=== PATIENT | male | born 1970 ===

== ENCOUNTER 2016-12-09 17:44 | Emergency (ER) | payer BC, MEDICARE, OTHER ==
[2016-12-09 17:58] VITALS: BMI 30.2
[2016-12-09] MEDS ORDERED: Lidocaine 2% Viscous 100 ml PO STA (18:37)
[2016-12-09] MEDS ORDERED: Belladonna-Phenobarbital PO STA (18:37)
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
[2016-12-09 19:06] LABS: BASO # 0.1 K/uL (0.0-0.2); BASO % 0.7 % (0.0-2.0); EOS # 0.1 K/uL (0.0-0.7); EOS % 1.6 % (0.0-4.0); HEMATOCRIT 46.4 % (35.0-51.0); LYMPH # 2.9 K/uL (1.0-4.3); LYMPH % 40.1 % (20.0-40.0); MEAN CELL VOLUME 85.4 fL (80.0-94.0); MEAN CORPUSCULAR HEMOGLOBIN 28.4 pg (27.0-31.0); MEAN CORPUSCULAR HGB CONC 33.3 g/dL (33.0-37.0); MEAN PLATELET VOLUME 9.1 fL (7.2-11.7); MONO # 0.5 K/uL (0.0-0.8); MONO % 6.9 % (0.0-10.0); NRBC % 0.1 % (0.0-2.0); RED CELL DISTRIBUTION WIDTH 14.4 % (11.5-14.5); WHITE BLOOD COUNT 7.2 K/uL (4.8-10.8)
[2016-12-09] MEDS ORDERED: Belladonna-Phenobarbital ONE (19:17)
[2016-12-09] MEDS ORDERED: Aluminum Hydroxide/Magnesium Hydroxide Susp (30 mL) PO STA (19:18)
[2016-12-09] MEDS ORDERED: Aluminum Hydroxide/Magnesium Hydroxide Susp (30 mL) ONE (19:21)
[2016-12-09 19:59] VITALS: O2SAT 99
[2016-12-09 20:54] LABS: CHLORIDE 103 mmol/L (98-107); POTASSIUM 4.1 mmol/L (3.6-5.2); SODIUM 138 mmol/L (132-148)
[2016-12-09 20:56] LABS: CARBON DIOXIDE 22 mmol/L (22-30); GFR AFRICAN-AMERICAN > 60
[2016-12-09 20:57] LABS: ALB/GLOB RATIO 1.4 (1.0-2.1); ALKALINE PHOSPHATASE 72 U/L (38-126); ALT/SGPT 32 U/L (21-72); AST/SGOT 28 U/L (17-59); BILIRUBIN,TOTAL 0.5 mg/dL (0.2-1.3); BLOOD UREA NITROGEN 15 mg/dL (9-20); CALCIUM 8.9 mg/dl (8.6-10.4); GLUCOSE,RANDOM 87 mg/dL (75-110); TOTAL PROTEIN 7.5 g/dL (6.3-8.3)
[2016-12-09 21:07] VITALS: BP 139/83; PULSE 62; RESP 16; TEMP 98.2
--- NOTE | 2016-12-09 23:12 | RAD ---
HISTORY: chest pain COMPARISON: None available. TECHNIQUE: Chest, one view. FINDINGS: Examination limited by habitus. LUNGS: Right infrahilar infiltrate. Please note that chest x-ray has limited sensitivity for the detection of pulmonary masses. PLEURA: No significant pleural effusion identified. No definite pneumothorax . CARDIOVASCULAR: The cardiomediastinal silhouette appears within normal limits of size. OSSEOUS STRUCTURES: No acute osseous abnormality identified. VISUALIZED UPPER ABDOMEN: Unremarkable. OTHER FINDINGS: None. IMPRESSION: Right infrahilar infiltrate. Study has been marked for PA review.
--- NOTE | 2016-12-14 09:02 | CARD ---
APPROVED REPORT EKG Measurement Heart [id number] <Conclusion> Normal sinus rhythm Normal ECG
== END 2016-12-09 21:00 | disposition left against medical advice (07) ==
LOC: C.ER 17:44
DX: R07.9 Chest pain, unspecified (principal)

== ENCOUNTER 2017-01-29 09:01 | Emergency (ER) | payer MEDICARE ==
[2017-01-29 09:01] VITALS: BMI 30.2
[2017-01-29 09:13] VITALS: BP 126/86; PULSE 67; RESP 16; TEMP 98; O2SAT 98
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
--- NOTE | 2017-01-29 10:33 | CT ---
PROCEDURE: CT HEAD WITHOUT CONTRAST. HISTORY: Fall COMPARISON: None available. TECHNIQUE: Axial computed tomography images were obtained through the head/brain without intravenous contrast. Radiation dose: Total exam DLP = 1004.67 mGy-cm. This CT exam was performed using one or more of the following dose reduction techniques: Automated exposure control, adjustment of the mA and/or kV according to patient size, and/or use of iterative reconstruction technique. FINDINGS: HEMORRHAGE: No intracranial hemorrhage. BRAIN: Castorena-white matter differentiation is preserved. There is no mass, mass effect or abnormal extra-axial fluid collection. VENTRICLES: The ventricles are normal in size, shape and configuration. CALVARIUM: There is no calvarial fracture. There is a small right parietal scalp hematoma. PARANASAL SINUSES: There is a small retention cyst/ polyp in the right maxillary sinus. The remaining included paranasal sinuses are clear. MASTOID AIR CELLS: Predominantly clear. OTHER FINDINGS: None. IMPRESSION: No acute intracranial abnormality. Small right parietal scalp hematoma.
--- NOTE | 2017-01-29 10:37 | CT ---
PROCEDURE: CT Cervical Spine without contrast HISTORY: Fall COMPARISON: None available. TECHNIQUE: Axial computed tomography images were obtained of the cervical spine without the use of intravenous contrast. Coronal and sagittal reformatted images were created and reviewed. Radiation dose: Total exam DLP = 696.53 mGy-cm. This CT exam was performed using one or more of the following dose reduction techniques: Automated exposure control, adjustment of the mA and/or kV according to patient size, and/or use of iterative reconstruction technique. FINDINGS: VERTEBRAE: There is normal alignment of the cervical vertebral bodies. There is straightening of the cervical spine with loss of normal cervical lordosis. Bone alignment and mineralization are normal. There is no acute fracture or traumatic anterior listhesis. The craniocervical junction is normal. The atlantoaxial joint is normal. DISCS/SPINAL CANAL/NEURAL FORAMINA: There is mild multilevel degenerative disc disease due to combination of disc osteophyte complexes, uncovertebral joint hypertrophy and multilevel facet arthropathy, worse at C5-6 with mild left neural foraminal stenosis. No central spinal canal stenosis. PARASPINAL SOFT TISSUES: The paraspinous soft tissues are normal. OTHER FINDINGS: No apical pneumothorax. IMPRESSION: No acute fracture or traumatic anterior listhesis. Straightening of the cervical spine may be positional or related to muscle spasm.
== END 2017-01-29 11:27 | disposition home or self-care (01) ==
LOC: C.ER 09:01
DX: S09.90XA Unspecified injury of head, initial encounter (principal); T14.8 Other injury of unspecified body region; W01.0XXA Fall on same level from slipping, tripping and stumbling without subsequent striking against object, initial encounter; Y93.01 Activity, walking, marching and hiking; Y92.480 Sidewalk as the place of occurrence of the external cause

== ENCOUNTER 2017-07-12 08:16 | Emergency (ER) | payer BC, MEDICARE ==
[2017-07-12 08:16] VITALS: BMI 30.2
[2017-07-12 08:24] VITALS: RESP 18
[2017-07-12] MEDS ORDERED: guaiFENesin 100 mg/5 ml Syrup UD ONE (10:05)
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
[2017-07-12] MEDS ORDERED: guaiFENesin 100 mg/5 ml Syrup UD PO STA (10:09)
[2017-07-12 10:12] VITALS: BP 134/83; PULSE 78; TEMP 97.4
[2017-07-12 10:28] VITALS: O2SAT 97
== END 2017-07-12 10:11 | disposition home or self-care (01) ==
LOC: C.ER 08:16
DX: B34.9 Viral infection, unspecified (principal)

== ENCOUNTER 2018-04-18 00:40 | Emergency (ER) | payer MEDICARE, BC ==
[2018-04-18 00:40] VITALS: BMI 34.5
[2018-04-18 00:55] VITALS: TEMP 98.2
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
[2018-04-18 04:20] VITALS: BP 124/79; PULSE 76; RESP 18
[2018-04-18 05:15] VITALS: O2SAT 97
--- NOTE | 2018-04-18 07:09 | CT ---
Date of service: 04/18/2018 PROCEDURE: CT HEAD WITHOUT CONTRAST. HISTORY: headache, dizzy, s/p fall COMPARISON: None available. TECHNIQUE: Axial computed tomography images were obtained through the head/brain without intravenous contrast. Radiation dose: Total exam DLP = 1084 mGy-cm. This CT exam was performed using one or more of the following dose reduction techniques: Automated exposure control, adjustment of the mA and/or kV according to patient size, and/or use of iterative reconstruction technique. FINDINGS: HEMORRHAGE: No intracranial hemorrhage. BRAIN: No mass effect or edema. No atrophy or chronic microvascular ischemic changes. VENTRICLES: Unremarkable. No hydrocephalus. CALVARIUM: Unremarkable. PARANASAL SINUSES: Unremarkable as visualized. No significant inflammatory changes. MASTOID AIR CELLS: Unremarkable as visualized. No inflammatory changes. OTHER FINDINGS: None. IMPRESSION: No acute intracranial abnormality. If symptoms persists, consider correlation with MRI. These findings were preliminarily reported at 3:45 a.m. on 04/18/[address] Hong Muñiz from [facility].
--- NOTE | 2018-04-18 08:27 | RAD ---
Date of service: 04/18/2018 PROCEDURE: Right Ankle Radiographs. HISTORY: ankle pain, fall COMPARISON: None FINDINGS: BONES: There is no calvarial fracture or extracranial soft tissue swelling. JOINTS: There is mild tricompartmental degenerative osteoarthrosis with reduced joint spaces, marginal osteophytes and tibial spiking, worse in the media compartment. There is a small suprapatellar joint effusion SOFT TISSUES: Normal. OTHER FINDINGS: None. IMPRESSION: No acute fracture or dislocation
--- NOTE | 2018-04-18 08:38 | RAD ---
Date of service: 04/18/2018 PROCEDURE: Right Knee Radiographs. HISTORY: Pain, fall COMPARISON: None. FINDINGS: BONES: Bone alignment and mineralization are normal. There is no acute displaced fracture or bone destruction. JOINTS: Normal. No osteoarthritis. JOINT EFFUSION: None. OTHER FINDINGS: None. IMPRESSION: No acute fracture or dislocation.
== END 2018-04-18 04:08 | disposition home or self-care (01) ==
LOC: C.ER 00:40 → SUPCPDRO 00:40 → C.ER 04:08
DX: S09.90XA Unspecified injury of head, initial encounter (principal); S93.401A Sprain of unspecified ligament of right ankle, initial encounter; S83.91XA Sprain of unspecified site of right knee, initial encounter; W01.0XXA Fall on same level from slipping, tripping and stumbling without subsequent striking against object, initial encounter

== ENCOUNTER 2018-06-11 05:54 | Day surgery (SDC) | payer MEDICARE, BC ==
[2018-06-06 11:22] VITALS: BMI 33.9
[2018-06-11] MEDS ORDERED: Lidocaine/Epinephrine 1% 1:100000 10 ML IJ ONE (07:14)
[2018-06-11] MEDS ORDERED: Bupivacaine 0.25% 20 ML INJ IJ ONE (07:14)
[2018-06-11] MEDS ORDERED: ceFAZolin 1 gm FROZEN Premix 2 GM/100 ML ML IVPB ONE (07:15)
[2018-06-11] MEDS ORDERED: Propofol 10 mg/ml Inj (20 ML) ONE ×2 (07:37→10:44)
[2018-06-11] MEDS ORDERED: Midazolam 2 MG/2 ML VIAL ONE ×2 (07:37→10:44)
[2018-06-11] MEDS ORDERED: metroNIDAZOLE IV 500 mg/100 ml 500 MG/100 ML BAG ONE (08:28)
[2018-06-11] MEDS ORDERED: Neostigmine Methylsulfate 3mg/3ml Syringe IV ONE (10:05)
[2018-06-11] MEDS ORDERED: Oxycodone/Acetaminophen 5/325 mg Tab PO PRN (10:28)
--- NOTE | 2018-06-11 10:31 | PCM.SURG1 ---
Surgeon's Initial Post Op Note - Surgeon's Notes Surgeon: Dr Trevino Outpatient Coding Specialist: Carmen Chao PGY2 Type of Anesthesia: General Endo Pre-Operative Diagnosis: internal and external hemorrhoids Operative Findings: internal and external hemorrhoids Post-Operative Diagnosis: same Operation Performed: 2 column hemorrhoidectomy internal sphincterotomy Specimen/Specimens Removed: right and left hemorrhoids Estimated Blood Loss: EBL {In ML}: 50 Date of Surgery/Procedure: 06/11/18 Time of Surgery/Procedure: 08:30
[2018-06-11] MEDS: HYDROmorphone 0.5 mg/0.5 ml ISec IVP PRN ×3 (10:50→11:28)
[2018-06-11] MEDS ORDERED: Lactated Ringer's 500 ML IV ONE ×2 (11:24)
[2018-06-11 15:23] VITALS: BP 112/80; PULSE 70; RESP 18; TEMP 98; O2SAT 100
--- NOTE | 2018-06-12 00:21 | OP ---
PROCEDURE DATE: 06/11/2018 PREOPERATIVE DIAGNOSES: 1. Grade IV prolapsed hemorrhoid with ulceration. 2. Lower gastrointestinal bleed. 3. Chronic anemia. POSTOPERATIVE DIAGNOSES: 1. Grade IV prolapsed hemorrhoid with ulceration. 2. Lower gastrointestinal bleed. 3. Chronic anemia. PROCEDURES: 1. Two column hemorrhoidectomy. 2. Internal sphincterotomy. 3. Examination under anesthesia. SURGEON: Barry Trevino MD ASSISTANTS: AURELIA Eng and Vivian Chao DO, PGY-2 resident ANESTHESIA: General endotracheal tube anesthesia. ESTIMATED BLOOD LOSS: Around 50 mL. DRAINS: None. PATHOLOGY: Left lateral hemorrhoid and the right lateral hemorrhoid were sent for the pathology. COMPLICATIONS: None. INTRAOPERATIVE FINDINGS: The patient had prolapse of all four columns of hemorrhoids with cauliflower shape of all the hemorrhoids, and the patient also had ulcerations on one of the two large hemorrhoids. DESCRIPTION OF PROCEDURE: On intraoperative steps, this is a 48-year-old male who was diagnosed with grade IV hemorrhoids with rectal bleeding and chronic anemia. The patient was consented for the hemorrhoidectomy. The patient was brought to the OR, placed supine on the operating table. After induction of the anesthesia, the patient was placed in a prone jackknife position. The perineal area was prepped and draped after butt cheek was taped apart, and examination under anesthesia was done. All four columns of hemorrhoids were prolapsed, and there were ulcerations on the right lateral and left lateral large hemorrhoids. After proper examination, first the right lateral hemorrhoid was demarcated, and the mucocutaneous junction was excised and pedicle was ligated deep into the rectum. The wound was closed with #1 Vicryl tie x2, and then the wound was closed with 2-0 PDS continuous suture and 4-0 Vicryl interrupted suture. Now, the similar excision was done on the left side. The mucocutaneous junction was excised. The dissection was carried down up to the pedicle. The pedicle was ligated with 0 Vicryl, and the wound was closed with 2-0 PDS continuous suture and 4-0 Monocryl, and dry sterile dressing was applied. The patient tolerated the procedure well. Counts of instrument and gauze was correct. Due to the sphincter was extremely tight, the internal sphincterotomy was done on the right lateral side. The sphincterotomy was done before closure of the right hemorrhoidal wound. After that, the patient was extubated in OR and sent to the postanesthesia care unit in stable condition. There was no apparent complication. The patient was extubated in OR and sent to the postanesthesia care unit in stable condition. Barry Trevino MD DT: 06/11/2018 14:42:19
== END 2018-06-11 15:25 | disposition home or self-care (01) ==
LOC: C.SDS 05:54
PROVIDERS: ATTEND Surgery Surgical Critical Care
DX: K64.9 Unspecified hemorrhoids (principal); K64.3 Fourth degree hemorrhoids; D50.0 Iron deficiency anemia secondary to blood loss (chronic)
CPT/HCPCS: 46260; 88304; J0690; J1170; J2250; J2405; J2704; J2710; J3010; J7120

== ENCOUNTER 2018-06-12 02:46 | Emergency (ER) | payer MEDICARE, BC ==
[2018-06-12 02:47] VITALS: BMI 33.9
[2018-06-12 03:07] VITALS: TEMP 98.5
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
[2018-06-12 03:29] LABS: URINE BILIRUBIN NEGATIVE (NEGATIVE); URINE BLOOD NEGATIVE (NEGATIVE); URINE CLARITY Clear (Clear); URINE COLOR Yellow (YELLOW); URINE GLUCOSE (UA) NORMAL (Normal); URINE LEUKOCYTE ESTERASE NEG Leu/uL (Negative); URINE PROTEIN NEGATIVE (NEGATIVE); URINE UROBILINOGEN NORMAL mg/dL (0.2-1.0)
[2018-06-12 03:48] LABS: BASO # 0.1 K/uL (0.0-0.2); BASO % 0.8 % (0.0-2.0); EOS # 0.4 K/uL (0.0-0.7); EOS % 3.6 % (0.0-4.0); HEMOGLOBIN 15.6 g/dL (12.0-18.0); LYMPH # 1.7 K/uL (1.0-4.3); LYMPH % 16.9 % (20.0-40.0); MEAN CELL VOLUME 89.1 fL (80.0-94.0); MEAN CORPUSCULAR HEMOGLOBIN 31.2 pg (27.0-31.0); MEAN PLATELET VOLUME 8.3 fL (7.2-11.7); MONO # 0.6 K/uL (0.0-0.8); MONO % 6.2 % (0.0-10.0); NEUT # 7.4 K/uL (1.8-7.0); NEUT % 72.5 % (50.0-75.0); NRBC % 0.1 % (0.0-2.0); RED CELL DISTRIBUTION WIDTH 14.1 % (11.5-14.5); WHITE BLOOD COUNT 10.2 K/uL (4.8-10.8)
[2018-06-12 04:07] LABS: ALB/GLOB RATIO 1.5 (1.0-2.1); ALBUMIN 4.7 g/dL (3.5-5.0); ALT/SGPT 91 U/L (21-72); AST/SGOT 66 U/L (17-59); BLOOD UREA NITROGEN 9 mg/dL (9-20); GFR NON-AFRICAN AMERICAN > 60
[2018-06-12 04:55] VITALS: BP 128/80; PULSE 66; RESP 20; O2SAT 98
== END 2018-06-12 04:55 | disposition left against medical advice (07) ==
LOC: C.ER 02:46 → SUPCPDRO 02:46 → C.ER 04:55
DX: R35.8 Other polyuria (principal)